=== PATIENT | male | born 1980 | race Caucasian/White ===

== ENCOUNTER 2025-08-13 08:54 | Outpatient (AMB) | payer OTHER, SELFPAY ==
--- NOTE | 2025-08-13 08:11 | MHC.PC.OV ---
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 He brings in a recent blood work that shows slightly elevated LDL. Currently on no medications. Nonsmoker. [facility] Medical History (Updated 08/14/25 @ 15:44 by Thor Salas MD) Hyperlipidemia Social History Patient Tobacco Use Status: Never used Tobacco Questionnaire AUDIT C Alcohol Use Questionnaire (AUDIT-C) 1. How often do you have a drink containing alcohol?: Monthly or less 2. How many drinks containing alcohol do you have on a typical day when you are drinking?: 1 or 2 3. How often do you have six or more drinks on one occasion?: Never Total Score: 1 Physical exam (Primary Care) Vital Signs: Last Vital Signs Temp 97.9 F 08/13/25 08:49 Pulse 63 08/13/25 08:49 BP 124/62 08/13/25 08:49 Pulse Ox 99 08/13/25 08:49 BMI result Body Mass Index 27.1 Tobacco/Smoking Status: Tobacco use Status Tobacco use date assessed 08/13/25 08/13/25 08:52 Patient Tobacco Use Status Never used Tobacco 08/13/25 08:52 Const General: cooperative and healthy appearing Nutritional Appearance: well nourished Orientation/consciousness: patient oriented x3 Limitations: no limitations HENMT Head: Yes normal to inspection Eyes General: appearance normal, both eyes and all related structures Neck Neck: Yes normal visual inspection Chest Chest palpation & inspection: normal palpation of entire chest wall Resp Effort & Inspection: normal respiratory effort Neuro General: patient oriented x3 Coding Level of Care Code New Pt Level 4 (23848) Add On Problem Visit Only Diagnoses Hyperlipidemia E78.5 Assessment & Plan Assessment & Plan (1) Hyperlipidemia: Code(s): E78.5 - Hyperlipidemia, unspecified Category: Medical Plan: Blood work reviewed. No medications needed currently. Counseling on the importance of diet and exercise done. Screening colonoscopy ordered. Orders: Referrals Gastroenterology Referral Z12.11 - Encounter for screening for malignant neoplasm of colon
[2025-08-13 08:49] VITALS: BP 124/62; PULSE 63; TEMP 36.6; O2SAT 99; BMI 27.1
--- OUTSIDE RECORDS SUMMARY | 2025-08-13 09:52 | XMS_ITS | Patient Health Record ---
[facility] Address [address] [place] [id number] Care Team Providers Care Accounting Administrative Assistant Name Role Phone Benny Paul Jr Reason For Referral No Information Plan Of Treatment No Information
== END 2025-08-13 08:56 | disposition home or self-care (01) ==
LOC: HO.HMCSH 08:54
PROVIDERS: PCP Internal Medicine; Visit Provider Internal Medicine
DX: E78.5 Hyperlipidemia, unspecified (principal)